=== PATIENT | male | born 1945 | race Two or more races ===

== ENCOUNTER 2018-02-01 21:58 | Emergency (ER) | payer OTHER ==
[~2018-02-01] VITALS: Ht 165.1 cm; Wt 70.3 kg
[~2018-02-01 21:58] MED LIST: AVAPRO150 MG PO; HYTRIN2 MG PO; PROSCAR5 MG PO
[2018-02-01] MEDS ORDERED: LASIX20 MG (22:13)
[2018-02-01] MEDS ORDERED: PLAVIX75 MG (22:13)
[2018-02-01] MEDS ORDERED: LOPRESSOR HCT1 EACH (22:13)
[2018-02-01] MEDS ORDERED: PROTONIX40 MG (22:13)
[2018-02-01] MEDS ORDERED: VASOTEC10 MG (22:14)
[2018-02-01] MEDS ORDERED: ZANTAC150 M3 (22:14)
== END 2018-02-02 02:31 | disposition home or self-care (01) ==
LOC: ER 21:58
DX: I16.0 Hypertensive urgency (principal); I10 Essential (primary) hypertension